=== PATIENT | male | born 1960 | race Caucasian/White ===

== ENCOUNTER 2017-02-16 04:11 | Observation (INO) | payer BC ==
[~2017-02-16] VITALS: Ht 193 cm; Wt 100.0 kg
[2017-02-16] VITALS (7 sets, daily range): BP systolic 106–168; BP diastolic 68–100; PULSE 66–78; RESP 12–18; TEMP 97.5–97.8; O2SAT 96–99
[2017-02-16] MEDS ORDERED: LISI-515 PO (04:27)
[2017-02-16] MEDS ORDERED: ASPI81CH CHEW (04:27)
[2017-02-16] MEDS ORDERED: OMEG1CAP28 PO (04:27)
[2017-02-16] MEDS ORDERED: ROSU40 PO (04:27)
[2017-02-16] MEDS ORDERED: LANS30CA PO (04:27)
[2017-02-16] MEDS ORDERED: NITROGLYCERIN 0.4 MG SL 25 TABS/BTL SL ONE (04:30)
[2017-02-16] MEDS ORDERED: ONDANSETRON HCL 4 MG/2 ML VIAL IV PUSH ONE (04:30)
[2017-02-16] MEDS ORDERED: MORPHINE SULFATE 4 MG/ML INJ IV PUSH ONE (04:30)
[2017-02-16] MEDS ORDERED: SODIUM CHLORID 0.9% 500 ML INJ 500 ML IV ONE (04:30)
[2017-02-16] MEDS ORDERED: SODIUM CHLORIDE 0.9% FLUSH 10 ML FLUSH IVF PRN (04:30)
--- NOTE | 2017-02-16 04:34 | PD ---
HPI Chief Complaint: Chest Pain Time Seen by Provider: 04:17 Travel History International Travel<30 days: No Contact w/Intl Traveler<30days: No Traveled to known affect area: No History of Present Illness HPI The patient is a 56-year-old male who presents to the emergency department for chest pain. The patient is currently visiting from [place], developed substernal chest pain that he described as pressure at approximately 9 PM. The chest pressure radiates to the back and is associated with mild nausea. He denies any shortness of breath or exertional symptoms. The states the patient did appear somewhat "clammy" earlier tonight with the chest pressure once again awakened him. The patient does have a history of hypertension, hyperlipidemia with previous stress test 6 years ago and subsequent cardiac catheterization. The patient states a cardiac catheterization revealed approximately 30% stenosis, but there was no stent placed. The patient denies any history of pancreatitis. The patient denies any history tobacco use, diabetes, or significant early family medical history for coronary artery disease. PFSH Past Medical History Cardiovascular Problems: Yes (HTN, Hyperlipidemia) High Cholesterol: Yes Diabetes: Yes (Pre-Diabetic per patient) Patient Takes Glucophage: No Diminished Hearing: No GERD: Yes Hypertension: Yes Tetanus Vaccination: < 5 Years Influenza Vaccination: No Past Surgical History Narrative Surgical Previous cardiac catheterization Surgical History: No Previous Surgery Social History Alcohol Use: No Tobacco Use: No Substance Use: No Allergies-Medications (Allergen,Severity, Reaction): Coded Allergies: No Known Allergies (Verified Allergy, Unknown, 02/16/17) Reported Meds & Prescriptions Reported Meds & Active Scripts Active Reported Aspirin 81 Mg Chew 81 Mg CHEW DAILY [id number] Ethyl Esters 1 Gm Cap 4 Gm PO DAILY Crestor (Rosuvastatin Calcium) 40 Mg Tab 40 Mg PO DAILY Lisinopril 20 Mg Tab 20 Mg PO DAILY Lansoprazole 30 Mg Capdr 30 Mg PO DAILY Review of Systems Except as stated in HPI: all other systems reviewed are Neg General / Constitutional: No: Fever HENT: No: Lightheadedness Cardiovascular: Positive: Chest Pain or Discomfort, Diaphoresis, No: Dyspnea on exertion Respiratory: No: Shortness of Breath Gastrointestinal: Positive: Nausea, No: Vomiting Musculoskeletal: No: Weakness Neurologic: No: Dizziness Physical Exam Narrative GENERAL: Awake, alert, pleasant 56-year-old male who appears slightly pale and clammy. SKIN: Focused skin assessment warm/dry. HEAD: Atraumatic. Normocephalic. EYES: Pupils equal and round. No scleral icterus. No injection or drainage. ENT: No nasal bleeding or discharge. Mucous membranes pink and moist. NECK: Trachea midline. No JVD. CARDIOVASCULAR: Regular rate and rhythm. No murmur appreciated. RESPIRATORY: No accessory muscle use. Clear to auscultation. Breath sounds equal bilaterally. GASTROINTESTINAL: Abdomen soft, non-tender, nondistended. No rebound tenderness. MUSCULOSKELETAL: No obvious deformities. No clubbing. No cyanosis. No edema. NEUROLOGICAL: Awake and alert. No obvious cranial nerve deficits. Motor grossly within normal limits. Normal speech. PSYCHIATRIC: Appropriate mood and affect; insight and judgment normal. Data Data Last Documented VS Vital Signs Date Time Temp Pulse Resp B/P (MAP) Pulse Ox O2 Delivery O2 Flow Rate FiO2 02/16/17 05:01 16 02/16/17 04:33 99 Room Air 02/16/17 04:18 97.7 78 Orders Orders Electrocardiogram (02/16/17 04:28) Ckmb (Isoenzyme) Profile (02/16/17 04:28) Complete Blood Count With Diff (02/16/17 04:28) Comprehensive Metabolic Panel (02/16/17 04:28) Magnesium (Mg) (02/16/17 04:28) Prothrombin Time / Inr (Pt) (02/16/17 04:28) Act Partial Throm Time (Ptt) (02/16/17 04:28) Troponin I (02/16/17 04:28) Lipase (02/16/17 04:28) Chest, Single Ap (02/16/17 04:28) Ecg Monitoring (02/16/17 04:28) Bilateral Bp Monitoring (02/16/17 04:28) Iv Access Insert/Monitor (02/16/17 04:28) Oximetry (02/16/17 04:28) Oxygen Administration (02/16/17 04:28) Morphine Inj (Morphine Inj) (02/16/17 04:30) Sodium Chloride 0.9% Flush (Ns Flush) (02/16/17 04:30) Nitroglycerin Sl (Nitrostat Sl) (02/16/17 04:30) Sodium Chlorid 0.9% 500 Ml Inj (Ns 500 M (02/16/17 04:30) Ondansetron Inj (Zofran Inj) (02/16/17 04:30) CKMB (02/16/17 04:30) CKMB% (02/16/17 04:30) Labs Laboratory Tests Test 02/16/17 04:30 White Blood Count 8.3 TH/MM3 Red Blood Count 4.73 MIL/MM3 Hemoglobin 14.1 GM/DL Hematocrit 40.9 % Mean Corpuscular Volume 86.6 FL Mean Corpuscular Hemoglobin 29.9 PG Mean Corpuscular Hemoglobin Concent 34.5 % Red Cell Distribution Width 12.5 % Platelet Count 171 TH/MM3 Mean Platelet Volume 8.8 FL Neutrophils (%) (Auto) 49.5 % Lymphocytes (%) (Auto) 37.0 % Monocytes (%) (Auto) 8.9 % Eosinophils (%) (Auto) 4.0 % Basophils (%) (Auto) 0.6 % Neutrophils # (Auto) 4.1 TH/MM3 Lymphocytes # (Auto) 3.1 TH/MM3 Monocytes # (Auto) 0.7 TH/MM3 Eosinophils # (Auto) 0.3 TH/MM3 Basophils # (Auto) 0.1 TH/MM3 CBC Comment DIFF FINAL Differential Comment Prothrombin Time 10.3 SEC Prothromb Time International Ratio 0.9 RATIO Activated Partial Thromboplast Time 23.0 SEC Blood Urea Nitrogen 19 MG/DL Creatinine 1.06 MG/DL Random Glucose 161 MG/DL Total Protein 6.9 GM/DL Albumin 4.0 GM/DL Calcium Level 8.8 MG/DL Magnesium Level 1.8 MG/DL Alkaline Phosphatase 45 U/L Aspartate Amino Transf (AST/SGOT) 24 U/L Alanine Aminotransferase (ALT/SGPT) 37 U/L Total Bilirubin 1.4 MG/DL Sodium Level 140 MEQ/L Potassium Level 3.6 MEQ/L Chloride Level 104 MEQ/L Carbon Dioxide Level 26.1 MEQ/L Anion Gap 10 MEQ/L Estimat Glomerular Filtration Rate 73 ML/MIN Total Creatine Kinase 164 U/L Troponin I LESS THAN 0.02 NG/ML Lipase 147 U/L Exceptions Acute Myocardial Infarction ASA Not Given on Arrival: Already taken by patient (the patient took 4 baby aspirin at approximately 3 AM) MDM Medical Decision Making Medical Screen Exam Complete: Yes Emergency Medical Condition: Yes Medical Record Reviewed: Yes Interpretation(s) EKG reveals normal sinus rhythm with a rate of 71. First-degree AV block with [place] of 246 ms. Inverted T-wave in lead 3. Chest x-ray reveals no acute findings. Laboratory Tests Test 02/16/17 04:30 White Blood Count 8.3 TH/MM3 Red Blood Count 4.73 MIL/MM3 Hemoglobin 14.1 GM/DL Hematocrit 40.9 % Mean Corpuscular Volume 86.6 FL Mean Corpuscular Hemoglobin 29.9 PG Mean Corpuscular Hemoglobin Concent 34.5 % Red Cell Distribution Width 12.5 % Platelet Count 171 TH/MM3 Mean Platelet Volume 8.8 FL Neutrophils (%) (Auto) 49.5 % Lymphocytes (%) (Auto) 37.0 % Monocytes (%) (Auto) 8.9 % Eosinophils (%) (Auto) 4.0 % Basophils (%) (Auto) 0.6 % Neutrophils # (Auto) 4.1 TH/MM3 Lymphocytes # (Auto) 3.1 TH/MM3 Monocytes # (Auto) 0.7 TH/MM3 Eosinophils # (Auto) 0.3 TH/MM3 Basophils # (Auto) 0.1 TH/MM3 CBC Comment DIFF FINAL Differential Comment Prothrombin Time 10.3 SEC Prothromb Time International Ratio 0.9 RATIO Activated Partial Thromboplast Time 23.0 SEC Blood Urea Nitrogen 19 MG/DL Creatinine 1.06 MG/DL Random Glucose 161 MG/DL Total Protein 6.9 GM/DL Albumin 4.0 GM/DL Calcium Level 8.8 MG/DL Magnesium Level 1.8 MG/DL Alkaline Phosphatase 45 U/L Aspartate Amino Transf (AST/SGOT) 24 U/L Alanine Aminotransferase (ALT/SGPT) 37 U/L Total Bilirubin 1.4 MG/DL Sodium Level 140 MEQ/L Potassium Level 3.6 MEQ/L Chloride Level 104 MEQ/L Carbon Dioxide Level 26.1 MEQ/L Anion Gap 10 MEQ/L Estimat Glomerular Filtration Rate 73 ML/MIN Total Creatine Kinase 164 U/L Troponin I LESS THAN 0.02 NG/ML Lipase 147 U/L Differential Diagnosis Differential diagnosis includes acute coronary syndrome, STEMI, esophageal spasm , GERD, pancreatitis, pulmonary embolism, aortic dissection. Narrative Course IV was established, labs are drawn and sent, and the patient was placed on cardiac telemetry monitoring and continuous pulse oximetry monitoring. EKG was ordered and interpreted. The patient took 4 baby aspirin prior to arrival, therefore, the patient was administered nitroglycerin, morphine, Zofran, and IV fluids. Chest x-ray was obtained. Chest x-rays unremarkable. The patient's pain had resolved after administration of nitroglycerin sublingual and morphine. The patient's blood glucose was elevated at 162. The patient does have multiple risk factors including male, age 56, hypertension, hyperlipidemia , borderline diabetes. Therefore, patient will be 23 hour observation to the chest pain center for serial cardiac enzymes and further evaluation by cardiology. Physician Communication Physician Communication The patient will be 23 hour observation to the chest pain center for serial cardiac enzymes and further evaluation by cardiology. Diagnosis Primary Impression: Chest pain Qualified Codes: R07.9 - Chest pain, unspecified Admitting Information Admitting Physician Requests: Observation Condition: Stable Neto Galeas MD Feb 16, 2017 04:34
--- NOTE | 2017-02-16 04:56 | RADRPT ---
EXAM DATE/TIME: 02/16/2017 04:40 [facility] COMPARISON: No previous studies available for comparison. INDICATIONS : Chest pain. MEDICAL HISTORY : None. SURGICAL HISTORY : None. ENCOUNTER: Initial ACUITY: 1 day PAIN SCORE: 0/10 LOCATION: Bilateral chest FINDINGS: A single view of the chest demonstrates no focal lung consolidation. No effusion. No pneumothorax. CONCLUSION: 1. No acute findings. Maurisio Pena MD on February 16, 2017 at 4:54 Board Certified Radiologist. This report was verified electronically.
[2017-02-16 05:04] LABS: AUTOMATED NEUTROPHIL # 4.1 TH/MM3 (1.8-7.7); BASOPHIL # 0.1 TH/MM3 (0-0.2); BASOPHIL % 0.6 % (0.0-2.0); EOSINOPHIL # 0.3 TH/MM3 (0-0.4); HEMATOCRIT 40.9 % (39.0-51.0); HEMO FLAGS DIFF FINAL; LYMPHOCYTE # 3.1 TH/MM3 (1.0-4.8); MEAN CELL VOLUME 86.6 FL (80.0-100.0); MEAN CORPUSCULAR HEMOGLOBIN 29.9 PG (27.0-34.0); MEAN CORPUSCULAR HGB CONC 34.5 % (32.0-36.0); MONO % 8.9 % (0.0-8.0); NEUT % 49.5 % (16.0-70.0); PLATELET COUNT 171 TH/MM3 (150-450); RED BLOOD COUNT 4.73 MIL/MM3 (4.50-5.90); RED CELL DISTRIBUTION WIDTH 12.5 % (11.6-17.2); WHITE BLOOD COUNT 8.3 TH/MM3 (4.0-11.0)
[2017-02-16 05:16] LABS: INTERNATIONAL NORMALIZED RATIO 0.9 RATIO; PROTHROMBIN TIME - PATIENT 10.3 SEC (9.8-11.6)
[2017-02-16 05:25] LABS: ALKALINE PHOSPHATASE 45 U/L (45-117); CREATINE KINASE 164 U/L (39-308); TOTAL BILIRUBIN ADULT 1.4 MG/DL (0.2-1.0)
[2017-02-16 05:27] LABS: ALT (GPT) 37 U/L (12-78); ANION GAP 10 MEQ/L (5-15); AST (GOT) 24 U/L (15-37); BICARBONATE 26.1 MEQ/L (21.0-32.0); BLOOD UREA NITROGEN 19 MG/DL (7-18); CHLORIDE 104 MEQ/L (98-107); GLOMERULAR FILTRATION RATE 73 ML/MIN (>89); MAGNESIUM 1.8 MG/DL (1.5-2.5); POTASSIUM 3.6 MEQ/L (3.5-5.1); SODIUM (NA) 140 MEQ/L (136-145)
[2017-02-16 05:37] LABS: CKMB 3.6 NG/ML (0.5-3.6)
[2017-02-16] MEDS ORDERED: ACETAMINOPHEN 500 MG CPLT PO PRN (05:45)
[2017-02-16] MEDS ORDERED: SODIUM CHLORIDE 0.9% FLUSH 10 ML FLUSH IV FLUSH PRN (05:45)
[2017-02-16] MEDS ORDERED: ACETAMINOPHEN/HYDROcodone 325 MG/7.5 MG TAB PO PRN (05:45)
[2017-02-16] MEDS ORDERED: NITROGLYCERIN 0.4 MG SL 25 TABS/BTL SL PRN (05:45)
[2017-02-16] MEDS ORDERED: MORPHINE SULFATE 4 MG/ML INJ IV PRN (05:45)
[2017-02-16] MEDS ORDERED: ONDANSETRON HCL 4 MG/2 ML VIAL IV PRN (05:45)
[2017-02-16 08:20] LABS: CREATINE KINASE 134 U/L (39-308)
--- NOTE | 2017-02-16 08:20 | HHI.HP ---
HPI Primary Care Physician [id number] in [place] Chief Complaint Chest pain History of Present Illness 56 male with known hypertension and hyperlipidemia presents to the ER for further evaluation of epigastric pain. Onset last evening around 10pm. Nonexertional. Locational points to epigastric area. Described as fullness and aching. Duration constant but able to fall asleep. Awaken at 3 am with same discomfort and became concerned. No radiation of pain. Association symptoms included diaphoresis. Denied SOB, nausea, or vomiting. reported him to look pale. No known precipitating factors. Discomfort subsided gradually after receiving morphine, Zofran, and nitro SL. Reports similar pain in the past that lead to full cardiac workup in 2008, including a cardiac catheterization. Follows with a drop wire builder in [place]. Visiting area at this time, assisting son to move as he is a freshman at [employer]. Review of Systems General: No fatigue,weakness, fever, chills, or recent illness. Has been his general state of health. On vacation from [place], sun his freshman at [employer]. In fact yesterday walked [facility] without any chest discomfort. HEENT: No JENKINS, no vision changes CV: As stated above. Denies any current chest pain or pressure. RESP: No SOB, cough, or sputum production. GI: No nausea, vomiting, or bowel changes. : No dysuria EXT: No lower leg edema, no paraesthesias MS: No discomfort or change in ROM NEURO: No difficulty with balance, LOC, motor/sensory deficits PSYCH: No anxiety, depression, or situational stress. SKIN: No rashes, no concerning lesions Past Family Social History Allergies: Coded Allergies: No Known Allergies (Verified Allergy, Unknown, 02/16/17) Past Medical History Hypertension, hyperlipidemia, hypertriglyceridemia, GERD Past Surgical History None Reported Medications Active Reported Aspirin 81 Mg Chew 81 Mg CHEW DAILY [id number] Ethyl Esters 1 Gm Cap 4 Gm PO DAILY Crestor (Rosuvastatin Calcium) 40 Mg Tab 40 Mg PO DAILY Lisinopril 20 Mg Tab 20 Mg PO DAILY Lansoprazole 30 Mg Capdr 30 Mg PO DAILY Active Ordered Medications Current Medications Medications (Trade) Dose Ordered Sig/Efren Route Start Time Stop Time Status Last Admin (NS Flush) 2 ml UNSCH PRN IV FLUSH 02/16/17 05:45 (NS Flush) 2 ml BID IV FLUSH 02/16/17 09:00 (Tylenol) 500 mg Q4H PRN PO 02/16/17 05:45 (Ward 7.5-325 Mg) 1 tab Q4H PRN PO 02/16/17 05:45 (Morphine Inj) 2 mg Q4H PRN IV 02/16/17 05:45 (Zofran Inj) 4 mg Q6H PRN IV 02/16/17 05:45 (Nitrostat Sl) 0.4 mg Q5M PRN SL 02/16/17 05:45 (Aspirin) 325 mg DAILY PO 02/16/17 09:00 Social History Known hypertension and hyperlipidemia. No known diabetes. Lifelong nonsmoker. Denies any alcohol or illegal drug use. Endorses an active lifestyle. Past cardiac testing Cardiac catheterization 2009 reported to be normal. Does not remember reason for cardiac catheterization. Has baseline EKG card provided by his drop wire builder with him. Baseline EKG diffuse T-wave changes Physical Exam Vital Signs Vital Signs Date Time Temp Pulse Resp B/P (MAP) Pulse Ox O2 Delivery O2 Flow Rate FiO2 02/16/17 08:07 21 02/16/17 07:02 97.6 66 18 106/68 (81) 98 02/16/17 05:50 72 14 118/75 (89) 97 Room Air 02/16/17 05:41 99 21 02/16/17 05:01 16 02/16/17 05:01 16 02/16/17 04:33 99 Room Air 02/16/17 04:33 99 Room Air 02/16/17 04:18 97.7 78 12 168/100 (122) 99 02/16/17 04:15 97.5 69 16 161/97 (118) 99 Physical Exam GENERAL: Alert WN, WD, NAD, pleasant, male HEAD: NC, AT CV: RRR, without murmur, rub, gallop, no JVD, S1-S2 no S3-S4. RESP: Clear lungs throughout bilateral, no crackles, wheeze, rhonchi, symmetrical chest rise, nonlabored, able to speak in full sentences ABD: Soft, NT, ND, no masses, positive bowel tones EXT: Pulses +24, no dependent edema MS: Normal tone 4 extremities, nontender, no obvious deformities, full range of motion NEURO: CN II through CN XII grossly intact, motor strength 5/5, gait WNL PSYCH: A+O 3, pleasant affect, appropriate speech, appropriate mood and affect , insight and judgment SKIN: Normal turgor, normal texture, no lesions, no rashes, brisk cap refill, even hair distribution Laboratory Laboratory Tests Test 02/16/17 04:30 02/16/17 07:30 White Blood Count 8.3 Red Blood Count 4.73 Hemoglobin 14.1 Hematocrit 40.9 Mean Corpuscular Volume 86.6 Mean Corpuscular Hemoglobin 29.9 Mean Corpuscular Hemoglobin Concent 34.5 Red Cell Distribution Width 12.5 Platelet Count 171 Mean Platelet Volume 8.8 Neutrophils (%) (Auto) 49.5 Lymphocytes (%) (Auto) 37.0 Monocytes (%) (Auto) 8.9 Eosinophils (%) (Auto) 4.0 Basophils (%) (Auto) 0.6 Neutrophils # (Auto) 4.1 Lymphocytes # (Auto) 3.1 Monocytes # (Auto) 0.7 Eosinophils # (Auto) 0.3 Basophils # (Auto) 0.1 CBC Comment DIFF FINAL Differential Comment Prothrombin Time 10.3 Prothromb Time International Ratio 0.9 Activated Partial Thromboplast Time 23.0 Blood Urea Nitrogen 19 Creatinine 1.06 Random Glucose 161 Total Protein 6.9 Albumin 4.0 Calcium Level 8.8 Magnesium Level 1.8 Alkaline Phosphatase 45 Aspartate Amino Transf (AST/SGOT) 24 Alanine Aminotransferase (ALT/SGPT) 37 Total Bilirubin 1.4 Sodium Level 140 Potassium Level 3.6 Chloride Level 104 Carbon Dioxide Level 26.1 Anion Gap 10 Estimat Glomerular Filtration Rate 73 Total Creatine Kinase 164 134 Creatine Kinase MB 3.6 Troponin I LESS THAN 0.02 LESS THAN 0.02 Lipase 147 Result Diagram: 02/16/1742902/16/17429 Imaging Last Impressions Chest X-Ray 02/16/17427 Signed Impressions: Service Date/Time: Thursday, February 16, 2017 04:40 - CONCLUSION: 1. No acute findings. Maurisio Pena MD Course EKG Normal sinus rhythm, nonspecific T-wave changes (T-wave changes more pronounced in 2008 EKG card provided by patient) Caprini VTE Risk Assessment Caprini VTE Risk Assessment: No/Low Risk (score <= 1) Caprini Risk Assessment Model Point Value = 1 Point Value = 2 Point Value = 3 Point Value = 5 Age 41-60 Minor surgery BMI > 25 kg/m2 Swollen legs Varicose veins or History of unexplained or recurrent spontaneous Oral contraceptives or hormone replacement Sepsis (< 1 month) Serious lung disease, including pneumonia (< 1 month) Abnormal pulmonary function Acute myocardial infarction Congestive heart failure (< 1 month) History of inflammatory bowel disease Medical patient at bed rest Age 61-74 Arthroscopic surgery Major open surgery (> 45 min) Laparoscopic surgery (> 45 min) Malignancy Confined to bed (> 72 hours) Immobilizing plaster cast Central venous access Age >= 75 History of VTE Family history of VTE Factor V Leiden Prothrombin [id number] Lupus anticoagulant Anticardiolipin antibodies Elevated serum homocysteine Heparin-induced thrombocytopenia Other congenital or acquired thrombophilia Stroke (< 1 month) Elective arthroplasty Hip, pelvis, or leg fracture Acute spinal cord injury (< 1 month) Prophylaxis Regimen Total Risk Factor Score Risk Level Prophylaxis Regimen 0-1 Low Early ambulation 2 Moderate Order ONE of the following: *Sequential Compression Device (SCD) *Heparin 5000 units SQ BID 3-4 Higher Order ONE of the following medications: *Heparin 5000 units SQ TID *Enoxaparin/Lovenox 40 mg SQ daily (WT < 150 kg, CrCl > 30 mL/min) *Enoxaparin/Lovenox 30 mg SQ daily (WT < 150 kg, CrCl > 10-29 mL/min) *Enoxaparin/Lovenox 30 mg SQ BID (WT < 150 kg, CrCl > 30 mL/min) AND/OR *Sequential Compression Device (SCD) 5 or more Highest Order ONE of the following medications: *Heparin 5000 units SQ TID (Preferred with Epidurals) *Enoxaparin/Lovenox 40 mg SQ daily (WT < 150 kg, CrCl > 30 mL/min) *Enoxaparin/Lovenox 30 mg SQ daily (WT < 150 kg, CrCl > 10-29 mL/min) *Enoxaparin/Lovenox 30 mg SQ BID (WT < 150 kg, CrCl > 30 mL/min) AND *Sequential Compression Device (SCD) Assessment and Plan Assessment and Plan #1 Atypical chest pain admitted to chest pain center. Ruled out with 2 sets of EKGs and cardiac enzymes. Seen and evaluated by Dr. Liseth Gross. Will complete a nuclear exercise stress test this a.m. If unremarkable will discharge later this afternoon. Patient agreeable to plan of care. #2 Hypertension-continue lisinopril #3 GERD continue lansoprazole #4 Hyperlipidemia-continue cholesterol medications as previously directed 14:10 Patient and updated on abnormal lexiscan and Dr. Gross will review images before discharging him. Both patient and agreeable to wait for Dr. Gross to review images however also state they would prefer to return home for his drop wire builder to review images. 15:00 Notified by RN that patient concerning leaving AMA with copy of Lexiscan. 16:00 Dr. Gross reviewed Lexiscan images. patient made aware per drop wire builder an argument could be made a cardiac catheterization could be done by Lexiscan report however since not on appropriate cardiac medications could discharge. Patient does not want to stay and prefers to have his drop wire builder review reports. Plans to drive home tomorrow. Instructed if he were to develop any further discomfort to stop for evaluation at an ER. Okay for discharge, follow-up with drop wire builder in [place] 3 days, amlodipine 5 mg daily given at discharge. Instructed to fill prescription before driving home, patient agreeable to plan of care Danielle Bahena Feb 16, 2017 08:20
[2017-02-16 08:43] LABS: CKMB 3.8 NG/ML (0.5-3.6)
[2017-02-16] MEDS ORDERED: PANTOPRAZOLE SOD 40 MG DELAYED RELEASE TAB PO SCH (09:00)
[2017-02-16] MEDS ORDERED: ATORVASTATIN 80 MG TAB PO SCH (09:00)
[2017-02-16] MEDS ORDERED: ASPIRIN 325 MG TAB PO SCH (09:00)
[2017-02-16] MEDS ORDERED: LISINOPRIL 20 MG TAB PO SCH (09:00)
[2017-02-16] MEDS ORDERED: SODIUM CHLORIDE 0.9% FLUSH 10 ML FLUSH IV FLUSH SCH (09:00)
--- NOTE | 2017-02-16 13:56 | RADRPT ---
EXAM DATE/TIME: 02/16/2017 10:47 [facility] COMPARISON: No previous studies available for comparison. INDICATIONS : Substernal chest pain radiating to the back. Angina DOSE: 26.5 mCi Tc99m Myoview at stress 11.0 mCi Tc99m Myoview at rest REST HEART RATE: 77 BPM TARGET HEART RATE: 140 BPM MAX HEART RATE: 145 BPM REST BLOOD PRESSURE: 120/78 mmHg MAX BLOOD PRESSURE: 164/74 mmHg EJECTION FRACTION: > 70% MEDICAL HISTORY : Hypercholesterolemia. Hypertension. SURGICAL HISTORY : Cardiac cath. ENCOUNTER: Initial ACUITY: 1 day PAIN SCALE: 3/10 LOCATION: Substernal chest TECHNIQUE: The patient underwent upright treadmill exercise in the chest pain center. Continuous ECG tracing wa s monitored during stress. Gated SPECT imaging was performed after stress, and conventional SPECT im aging was performed at rest. The examination was performed on a SPECT/CT scanner, both attenuation-c orrected and non-corrected datasets were reviewed. FINDINGS: DISTRIBUTION: The maximum perfused segment at stress is in the lateral wall. PERFUSION STUDY: The pattern of perfusion at stress is greater than 20% redistribution in portions of the anterior wal l. GATED STUDY: There is intact wall motion and thickening without hypokinetic or dyskinetic segments. CONCLUSION: 1. Greater than 20% redistribution in portions of the anterior wall concerning for significant stenos is in the distribution of the LAD. 2. Excellent wall motion throughout with an estimated ejection fraction greater than 70%. RISK CATEGORY: Intermediate (1-3% Annual Mortality Rate) Alonzo Monique MD on February 16, 2017 at 13:39 Board Certified Radiologist. This report was verified electronically.
[2017-02-16] MEDS ORDERED: AMLO5TAB2 PO (15:55)
--- NOTE | 2017-02-16 16:06 | HHI.DCPOC ---
Discharge Care Plan Diagnosis: (1) Hypertension (2) Atypical chest pain (3) GERD (gastroesophageal reflux disease) Goals to Promote Your Health * To prevent worsening of your condition and complications * To maintain your health at the optimal level Directions to Meet Your Goals Take your medications as prescribed Follow your dietary instruction Follow activity as directed Keep your appointments as scheduled Take your immunizations and boosters as scheduled If your symptoms worsen call your PCP, if no PCP go to Urgent Care Center or Emergency Room Smoking is Dangerous to Your Health. Avoid second hand smoke Call the 24-hour hour crisis hotline for domestic abuse at Danielle Bahena Feb 16, 2017 16:05
--- NOTE | 2017-02-16 17:44 | TR ---
Date Performed: 02/16/2017 Time Performed: 11:30:14 DOCTOR: Liseth Gross DRUG LIST: CLINICAL HISTORY: CHEST PAIN R/O ACS REASON FOR TEST: Chest pain R/O ACS REASON FOR ENDING: OBSERVATION: CONCLUSION: Edgardo protocol completed. Stopped sed to exceeding target heart rate and leg fatigue . Maximum IF=992 Target HR Achieved=88.0% Maximum MJ=640/80 Total Exercise Time=8:01. No reprod chest pain. Diffuce Twave inversion prior and during exam. Normal bp response. Nuclear images pending. COMMENTS:
--- NOTE | 2017-02-16 19:31 | EKG ---
Date Performed: 02/16/2017 Time Performed: 07:53:04 PTAGE: 56 years EKG: Sinus rhythm WITH FIRST DEGREE AV BLOCK NONSPECIFIC T-WAVE ABNORMALITY ABNORMAL ECG Compared to prior tracing no significant change DOCTOR: Elisabeth Cornejo Interpretating Date/Time 02/16/2017 19:29:56
--- NOTE | 2017-02-16 19:37 | EKG ---
Date Performed: 02/16/2017 Time Performed: 04:19:06 PTAGE: 56 years EKG: Sinus rhythm WITH FIRST DEGREE AV BLOCK NONSPECIFIC T-WAVE ABNORMALITY ABNORMAL ECG NO PREVIOUS TRACING DOCTOR: Elisabeth Cornejo Interpretating Date/Time 02/16/2017 19:36:36
== END 2017-02-16 16:42 | disposition home or self-care (01) ==
LOC: NEPE 04:11 → NEDA 05:37 → NEPFCDU 06:59
PROVIDERS: ADMIT Internal Medicine Interventional Cardiology; ATTEND Internal Medicine Interventional Cardiology
DX: R07.9 Chest pain, unspecified (principal); I10 Essential (primary) hypertension; R94.31 Abnormal electrocardiogram [ECG] [EKG]; K21.9 Gastro-esophageal reflux disease without esophagitis; E78.00 Pure hypercholesterolemia, unspecified
CPT/HCPCS: 71010; 78452; 80053; 82550; 82552; 83690; 83735; 84484; 85025; 85610; 85730; 93005; 93017; 96374; 96375; 99285; A9502; G0378; J2270; J2405; J7040